=== PATIENT | male | born 1975 | race Two or more races ===

== ENCOUNTER 2025-08-11 11:52 | Emergency (ER) | payer OTHER ==
[~2025-08-11] VITALS: Ht 175.3 cm; Wt 80.7 kg
[2025-08-11] MEDS ORDERED: GLIMEPIRIDE1 M1 (12:40)
[2025-08-11] MEDS ORDERED: FOSRENOL1000 MG PO (12:40)
[2025-08-11] MEDS ORDERED: [UNRECOGNIZED DRUG - CODE] (12:40)
[2025-08-11] MEDS ORDERED: HUMALOG100 UNIT/2 SQ (12:41)
[2025-08-11 13:56] LABS: BASO % 0.7 % (0.1-1.2); EOS # 0.26 (0.04-0.54); EOS % 3.5 % (0.7-7.0); LYMPH # 1.25 (1.18-3.74); LYMPH % 16.9 % (19.3-53.1); MEAN PLATELET VOLUME 10.70 fl (9.4-12.4); MONO # 0.60 (0.24-0.82); MONO % 8.1 % (4.7-12.5); NEUT # 5.23 (1.56-6.13); NEUT % 70.7 % (34.0-71.1); RED CELL DISTRIBUTION WIDTH 12.9 % (11.6-14.4)
[2025-08-11 14:05] LABS: ERYTHROCYTE SEDIMENTATION RATE 2 mm/hr (0-15)
[2025-08-11 14:30] LABS: BUN CREA RATIO 20.0 (7.0-25.0); CREATININE SERUM 1.01 mg/dL (0.70-1.30); GFR 78.51; GLUCOSE FASTING 185.0 mg/dL (65-100); OSMOLALITY SERUM 289.0 MOSM/KG (275-295)
[2025-08-11 14:38] LABS: URINE APPEARANCE Clear; URINE BILIRRUBIN Negative (NEGATIVE); URINE BLOOD Moderate; URINE COLOR Yellow; URINE KETONE Trace (NEGATIVE); URINE LEUKOCYTE Negative; URINE NITRATE Negative; URINE PROTEIN Trace (NEGATIVE); URINE UROBILINOGEN 0.2 E.U./dl
[2025-08-11 14:42] LABS: URINE BACTERIA 13.1 uL (0.0-1933); URINE EPITHELIAL CELLS 10.3 uL (0.0-38.8); URINE RBC 297.1 uL (0.0-20.8); URINE WBC 19.6 uL (0.0-23.2)
[2025-08-11 14:44] LABS: URINE CAST 1.31 uL (0.0-1.40); URINE GLUCOSE >=1000 MG/DL (NEGATIVE)
== END 2025-08-11 18:55 | disposition home or self-care (01) ==
LOC: ER 11:52
PROVIDERS: General Practice
DX: N13.30 Unspecified hydronephrosis (principal); R10.20 Pelvic and perineal pain unspecified side